=== PATIENT | male | born 1945 | race Caucasian/White ===

== ENCOUNTER → 2024-02-10 09:07 | Outpatient (REF) | payer MEDICARE, OTHER, SELFPAY ==
[2024-02-10 11:03] LABS: % Basophils 1.5 % (0-2); % Eosinophils 3.3 % (0-6); % Immature Granulocytes 0.3 % (0-0.5); % Lymphocytes 20.7 % (20.5-51.1); % Monocytes 11.9 % (1.7-9.3); % Neutrophils 62.3 % (42.2-75.2); Absolute Basophils 0.1 10^3/uL (0-0.2); Absolute Eosinophils 0.2 10^3/uL (0-0.7); Absolute Lymphocytes 1.2 10^3/uL (1.2-3.4); Absolute Monocytes 0.7 10^3/uL (0.1-0.6); Absolute Neutrophils 3.7 10^3/uL (1.4-6.5); Hemoglobin 10.8 g/dL (13.0-18.0); Mean Corp Hgb Conc. 29.2 g/dL (33.0-37.0); Mean Corpuscular Hgb 21.9 pg (27.0-31.0); Mean Corpuscular Volume 75.1 fL (80.0-94.0); Mean Platelet Volume 9.8 fL (7.4-10.4); Nucleated Red Blood Cells % 0 % (-); Platelet Count 254 10^3/uL (130-400); Red Blood Cell Count 4.93 10^6/uL (4.70-6.10); Red Cell Dist. Width 20.5 % (11.5-14.5)
[2024-02-10 11:10] LABS: ALT (SGPT) 18 U/L (0-50); AST (SGOT) 28 U/L (17-59); Albumin 4.2 g/dl (3.5-5.0); Alkaline Phosphatase 64 U/L (38-126); Blood Urea Nitrogen 24 mg/dl (9-20); Calcium 9.3 mg/dl (8.4-10.2); Carbon Dioxide 27 mmol/L (22-30); Chloride 97 mmol/L (98-107); Glucose 84 mg/dl (70-99); HDL Cholesterol 57 mg/dl; LDL Cholesterol, Calculated 81 mg/dl; Potassium 4.1 mmol/L (3.5-5.1); Sodium 133 mmol/L (135-145); Total Bilirubin 0.8 mg/dl (0.2-1.3); Total Cholesterol 149 mg/dl (50-199); Total Protein 7.2 g/dl (6.3-8.2); Triglyceride 55 mg/dl (10-149); Very Low Density Lipoprotein 11 mg/dl (0-30); eGFR > 60.00
[2024-02-10 11:41] LABS: TSH 2.27 uIU/ml (0.47-4.68)
[2024-02-10 11:53] LABS: Glycohemoglobin (HgbA1c) 5.3 % (4.0-5.6)
== END ==
LOC: OLABHEARBC 09:07
DX: R63.5 Abnormal weight gain (principal)
CPT/HCPCS: 36415; 80053; 80061; 83036; 84439; 84443; 85025